=== PATIENT | female | born 1970 | race African-American/Black ===

== ENCOUNTER 2019-01-29 19:36 | Emergency (ER) | payer BC, OTHER ==
[~2019-01-29] VITALS: Ht 170.2 cm; Wt 81.6 kg
[2019-01-29] MEDS ORDERED: CLINDAMYCIN 900 MG/6 ML VIAL. IM ONE (20:30)
[2019-01-29] MEDS ORDERED: HYDR-3165 PO (20:35)
[2019-01-29] MEDS ORDERED: SULF1TAB24 PO (20:35)
--- NOTE | 2019-01-29 20:36 | PHYS DOC ---
Past History Past Medical History: Cancer, Migraines Past Surgical History: Hysterectomy, Tonsillectomy, Other Alcohol Use: None Drug Use: None Adult General Chief Complaint Chief Complaint: ABSCESS HPI HPI Patient is a 48-year-old female who presents with complaint of painful, swollen area between her buttocks. She states that area has been present for nearly a week and states that over the last few days it has been draining. She denies any fever. She states this just not getting any better and in fact it is getting worse. She rates pain as moderate and states it is painful to touch.[] Review of Systems Review of Systems Constitutional: Denies fever or chills [] Respiratory: Denies cough or shortness of breath [] Cardiovascular: No additional information not addressed in HPI [] Integument: Painful area of swelling, warmth and tenderness between buttocks[] Neurologic: Denies headache, focal weakness or sensory changes [] Current Medications Current Medications Current Medications Medications (Trade) Dose Ordered Sig/Ariela Start Time Stop Time Status Last Admin Dose Admin Clindamycin Phosphate (Cleocin) 900 mg 1X ONCE 01/29/19 20:30 01/29/19 20:31 Allergies Allergies Allergies Coded Allergies Type Severity Reaction Last Updated Verified erythromycin base Allergy Unknown 01/29/19 Yes Physical Exam Physical Exam Constitutional: Well developed, well nourished, no acute distress, non-toxic appearance. [] Cardiovascular:Heart rate regular rhythm, no murmur [] Lungs & Thorax: Bilateral breath sounds clear to auscultation [] Abdomen: Bowel sounds normal, soft, no tenderness, no masses, no pulsatile masses. [] Skin: Warm, dry. Gluteal cleft demonstrates tender, swollen, indurated area with central fluctuance and purulent drainage, easily expressed, consistent with abscess [] Current Patient Data Vital Signs Vital Signs Date Time Temp Pulse Resp B/P (MAP) Pulse Ox O2 Delivery O2 Flow Rate FiO2 01/29/19 19:46 98.0 103 18 98 Room Air EKG EKG [] Radiology/Procedures Radiology/Procedures [] Course & Med Decision Making Course & Med Decision Making Pertinent Labs and Imaging studies reviewed. (See chart for details) Abscess Incision and Drainage with irrigation by me: Location: Gluteal cleft Anesthesia: Local 1% Lidocaine Technique: Irrigated. Disrupted loculations w/ instrumentation Packing: None Complications: Neurovascularly intact post procedure 48 hour wound check. Scar minimization instructions given. Dragon Disclaimer Dragon Disclaimer This electronic medical record was generated, in whole or in part, using a voice recognition dictation system. Departure Departure: Impression: Primary Impression: Pilonidal abscess Disposition: HOME, SELF-CARE Condition: STABLE Referrals: PCP,NO (PCP) Patient Instructions: Abscess, Abscess, Care After Scripts Hydrocodone Bit/Acetaminophen (NORCO 5-325 TABLET) 1 Each Tablet 1 TAB PO PRN Q6HRS PRN for PAIN, #12 TAB 0 Refills Prov: DIMITRIOS GARRETT Jr. DO 01/29/19 Sulfamethoxazole/Trimethoprim (BACTRIM DS TABLET) 1 Each Tablet 1 TAB PO BID for abscess, #20 TAB Prov: DIMITRIOS GARRETT Jr. DO 01/29/19 DIMITRIOS GARRETT Jr. DO January 29, 2019 20:36
[2019-01-29 20:40] VITALS: BP 116/74
== END 2019-01-29 20:59 | disposition home or self-care (01) ==
LOC: ER 19:45
DX: L05.01 Pilonidal cyst with abscess (principal); G43.909 Migraine, unspecified, not intractable, without status migrainosus; Z88.1 Allergy status to other antibiotic agents
CPT/HCPCS: 10080; 87070; 96372; 99284